=== PATIENT | female | born 2000 | race Caucasian/White ===

== ENCOUNTER 2019-07-07 15:20 | Emergency (ER) | payer OTHER ==
[~2019-07-07] VITALS: Ht 157.5 cm; Wt 52.2 kg
[2019-07-07 15:45] LABS: URINE BILIRUBIN NEGATIVE (Negative); URINE BLOOD 1+ (Negative); URINE CLARITY CLOUDY; URINE COLOR YELLOW; URINE GLUCOSE-RANDOM* NEGATIVE (Negative); URINE KETONES TRACE (Negative); URINE LEUKOCYTES NEGATIVE (Negative); URINE NITRITE NEGATIVE (Negative); URINE PROTEIN (DIPSTICK) 1+ (Negative); URINE SPECIFIC GRAVITY 1.025 (1.005-1.035); URINE UROBILINOGEN 0.2 E.U./dl (0.2-1.0)
[2019-07-07 15:53] LABS: SQUAMOUS >10 Many /LPF (0-3)
[2019-07-07 15:54] LABS: BACTERIA 1-9 Few /HPF (None Seen); CASTS None Seen /LPF (None Seen); CRYSTALS None Seen /LPF (None Seen); URINE RBC 3-10 Few /HPF (0-2); URINE WBC 0-5 Rare /HPF (0-5)
[2019-07-07] MEDS ORDERED: NORFLEX100 MG PO (18:28)
[2019-07-07] MEDS ORDERED: SENNA-DOCUSATE1 EAC1 PO (18:28)
[2019-07-07] MEDS ORDERED: NORCO 5-325 TA1 EAC1 PO (18:28)
[2019-07-07] MEDS ORDERED: FLEXERIL PO (18:38)
[2019-07-07 19:00] VITALS: BP 137/79
== END 2019-07-07 19:01 | disposition home or self-care (01) ==
LOC: ER 15:20
PROVIDERS: Emergency Medicine
DX: O9A.311 Physical abuse complicating pregnancy, first trimester (principal); S20.211A Contusion of right front wall of thorax, initial encounter; S40.011A Contusion of right shoulder, initial encounter; S40.021A Contusion of right upper arm, initial encounter; S00.83XA Contusion of other part of head, initial encounter; S00.03XA Contusion of scalp, initial encounter; S10.83XA Contusion of other specified part of neck, initial encounter; S00.432A Contusion of left ear, initial encounter; Z3A.01 Less than 8 weeks gestation of pregnancy; Y04.8XXA Assault by other bodily force, initial encounter; Y92.89 Other specified places as the place of occurrence of the external cause; Y93.89 Activity, other specified; Y99.8 Other external cause status